=== PATIENT | female | born 1970 | race Hispanic/Latino ===

== ENCOUNTER → 2017-10-03 | Outpatient (CLI) | payer OTHER ==
--- NOTE | 2017-10-13 15:47 | Diagnostic Imaging Report ---
#[id number] - MGSCRBIL #BILATERAL DIGITAL SCREENING MAMMOGRAM WITH CAD: 10/03/2017 CLINICAL: Routine screening. Comparison is made to exams dated: 03/23/2017 ultrasound, 09/09/2016 ultrasound, 09/09/2016 mammogram, 08/17/2016 mammogram and 09/09/2014 mammogram - [facility]. Current study contains 5 films. The tissue of both breasts is heterogeneously dense. This may lower the sensitivity of mammography. Current study was also evaluated with a Computer Aided Detection (CAD) system. There is a benign mass in the left breast. Calcifications are stable. No significant masses, calcifications, or other findings are seen in either breast. There has been no significant interval change. IMPRESSION: BENIGN There is no mammographic evidence of malignancy. A 1 year screening mammogram is recommended. The patient will be notified by letter of the results. Juan Aguayo Jr., D.O. cw/:10/13/2017 08:59:13 Map Compiler: Aviva DAMON(Huong)(M), [facility] letter sent: Compared to Prior B9 Mammogram BI-RADS: 2 Benign
== END ==
LOC: MAMMO 13:31
PROVIDERS: ATTEND Family Medicine
DX: Z12.31 Encounter for screening mammogram for malignant neoplasm of breast (principal)
CPT/HCPCS: G0202

== ENCOUNTER → 2018-02-20 | Outpatient (CLI) | payer OTHER ==
--- NOTE | 2018-02-21 08:15 | Diagnostic Imaging Report ---
#[id number] - USBRECOMLT ULTRASOUND OF THE LEFT BREAST : 02/20/2018 Comparison is made to exams dated: 10/03/2017 mammogram, 03/23/2017 ultrasound, 09/09/2016 ultrasound and 09/09/2016 mammogram - [facility]. Color flow and real-time ultrasound were performed on the entire left breast with scanning in all four quadrants, retroareolar region and the left axilla. -At 12 o'clcok 2 cm from the nipple in the area of pain there is an 8 x 5 x 6 mm hypechoic nodule/cyst with internal debris. Pressure over this area causes pain. This is slightly increased in size. -At 12 o'clcok 2 cm from the nipple there is a simple cyst measuring 8 x 4 x 4 mm. -At 4 o'clock 5 cm from the nipple there is a simple cyst measuring 7 x 3 x 5 mm. -In the retroareolar region there is a simple cyst measuring 4 x 4 x 4 mm. IMPRESSION: BENIGN There is no sonographic evidence of malignancy. A 1 year screening mammogram is recommended. Juan Aguayo Jr., D.O. cw/:02/20/2018 14:08:42 [employer] Officer: JET DAMON, [facility] letter sent: Normal Exam Ultrasound BI-RADS: 2 Benign
== END ==
LOC: US 11:45
PROVIDERS: ATTEND Family Medicine
DX: N64.4 Mastodynia (principal)